=== PATIENT | male | born 1995 | race Caucasian/White ===

== ENCOUNTER 2020-04-03 07:08 | Emergency (ER) | payer OTHER ==
[~2020-04-03] VITALS: Ht 167.6 cm; Wt 70.3 kg
[2020-04-03 07:20] VITALS: Ht 167.6 cm; Wt 70.3 kg
[2020-04-03 08:02] VITALS: BP 128/78
== END 2020-04-03 08:02 | disposition home or self-care (01) ==
LOC: ED 07:08
DX: F15.90 Other stimulant use, unspecified, uncomplicated (principal); F16.90 Hallucinogen use, unspecified, uncomplicated; R20.2 Paresthesia of skin; F17.210 Nicotine dependence, cigarettes, uncomplicated; Z71.6 Tobacco abuse counseling
CPT/HCPCS: 99406